=== PATIENT | female | born 1955 | race Caucasian/White ===

== ENCOUNTER 2017-05-31 23:16 | Inpatient (IN) | payer MEDICARE ==
[2017-05-31 23:57] LABS: HEMATOCRIT 51.6 % (36.0-48.0); LYMPHOCYTES 31.9 % (15-50); MCH 28.4 pg (26.0-34.0); MCHC 34.9 g/dL (31.0-37.0); MCV 81.4 fL (80.0-100.0); MEAN PLATELET VOLUME 9.3 fL (7.4-10.4); NEUTROPHILS 61.4 % (40-80); PLATELET COUNT 281 10x3/uL (130-400); RBC 6.34 10x6/uL (4.00-5.40); RDW 14.2 % (11.5-14.5); WBC 10.3 10x3/uL (4.8-10.8)
[2017-06-01 00:21] LABS: ALBUMIN 3.6 g/dL (3.4-5.0); BILIRUBIN - TOTAL 0.6 mg/dL (0.2-1.3); CALCIUM 9.3 mg/dL (8.5-10.1); CARBON DIOXIDE 25.7 mmol/L (21.0-32.0); CREATININE - SERUM 1.3 mg/dL (0.6-1.3); PROTEIN - SERUM 7.4 g/dL (6.4-8.2)
[2017-06-01 00:23] LABS: POTASSIUM - SERUM 2.7 mmol/L (3.5-5.1); TROPONIN-I 0.153 ng/mL (0.000-0.060)
[2017-06-01 03:32] VITALS: BP 128/63; BMI 36.1
--- NOTE | 2017-06-01 03:38 | NUR ---
ARRIVED TO FLOOR VIA WHEELCHAIR, ACCOMPANIED BY HOSPITAL STAFF. ORIENTED TO UNIT AND PLACED ON TELEMETRY 67 SR. IV FLUIDS INITIATED TO LEFT AC NS WITH 40KCL @ 100. CALL LIGHT IN REACH. WILL CONTINUE TO MONITOR. SEE NURSE ASSESSMENT.
[2017-06-01] MEDS ORDERED: CATAPRES0.1 MG PO (03:44)
[2017-06-01] MEDS ORDERED: LISINOPRIL-HCTZ1 T13 PO (03:44)
[2017-06-01] MEDS ORDERED: NORVASC5 MG PO (03:45)
[2017-06-01] MEDS ORDERED: XIGDUO XR 10 M1 EAC1 PO (03:45)
[2017-06-01] MEDS ORDERED: METOPROLOL TART50 MG PO (03:45)
[2017-06-01] MEDS ORDERED: TRULICITY0.75 MG/0. SC (03:46)
[2017-06-01 06:46] LABS: CKMB 26.5 U/L (0.0-3.6); CREATINE KINASE 193 UL (21-215)
[2017-06-01 06:53] LABS: TROPONIN-I 0.137 ng/mL (0.000-0.060)
[2017-06-01 07:38] LABS: BASOPHILS 0.4 % (0-2); EOSINOPHILS 0.4 % (0-7); HEMATOCRIT 49.4 % (36.0-48.0); HEMOGLOBIN 17.7 g/dL (12-16); IMMATURE GRANULOCYTES 0.3 % (0-5); LYMPHOCYTES 31.9 % (15-50); MCH 29.5 pg (26.0-34.0); MCHC 35.8 g/dL (31.0-37.0); MCV 82.5 fL (80.0-100.0); MEAN PLATELET VOLUME 10.3 fL (7.4-10.4); MONOCYTES 8.2 % (2-11); NEUTROPHILS 58.8 % (40-80); PLATELET COUNT 243 10x3/uL (130-400); RBC 5.99 10x6/uL (4.00-5.40); RDW 13.3 % (11.5-14.5); WBC 11.3 10x3/uL (4.8-10.8)
[2017-06-01 07:48] LABS: ANION GAP 15.9 mmol/L (8-16); CALCIUM 9.3 mg/dL (8.5-10.1); CARBON DIOXIDE 25.9 mmol/L (21.0-32.0); CREATININE - SERUM 1.3 mg/dL (0.6-1.3)
[2017-06-01 07:49] LABS: POTASSIUM - SERUM 3.8 mmol/L (3.5-5.1)
[2017-06-01 08:07] VITALS: BP 127/68
[2017-06-01 11:46] LABS: APPEARANCE HAZY (CLEAR); BILIRUBIN NEGATIVE (NEGATIVE); COLOR YELLOW (YELLOW); GLUCOSE 1000 mg/dL (NEGATIVE); KETONE SMALL mg/dL (NEGATIVE); NITRITE NEGATIVE (NEGATIVE); PROTEIN NEGATIVE (NEGATIVE); UROBILINOGEN NORMAL (NORMAL)
[2017-06-01 11:53] VITALS: BP 111/51
--- NOTE | 2017-06-01 12:33 | NUR ---
PT REFUSED INSULIN WHICH WOULD BE 2 UNITS PER SS. FSBS 194. PT STATES "I DONT LIKE INSULIN AND NEVER WANT TO TAKE IT" WILL DISCUSS WITH PRIMARY ABOUT STRATING HOME MEDS. PT DENIES ANY PAIN OR CURRENT NEEDS AT THIS TIME. CL IN REACH. WILL CPOC.
[2017-06-01 12:52] LABS: CKMB 24.9 U/L (0.0-3.6); CREATINE KINASE 185 UL (21-215)
[2017-06-01 12:55] LABS: TROPONIN-I 0.131 ng/mL (0.000-0.060)
[2017-06-01 14:04] VITALS: BMI 36.0
--- NOTE | 2017-06-01 14:50 | NUR ---
PT WAITING QUIETLY AND RESTING WITH FRIEND AT BEDSIDE. INQUIRING ABOUT GETTING NEW DIABETIC MED AND WHEN PRIMARY DOCTOR WILL BE ROUNDING, IS ON FLOOR AND I LET THEM KNOW HE SHOULD BE AROUND SHORTLY. CL IN REACH. WILL CPOC.
--- NOTE | 2017-06-01 16:30 | NUR ---
STOOL SPECIMEN NEEDED, EXPLAINED COLLECTION PROCESS WITH PT AND PUT COLLECTION HAT IN BR. PT VERBALIZED UNDERSTANDING AND STATES SHE WILL CALL WHEN ABLE TO HAVE BM. NO CURRENT NEEDS. WILL CPOC.
--- NOTE | 2017-06-01 16:53 | NUR ---
FSBS 229 PT REC'D 4 UNITS PER SS INSULIN. PT C/O THROBBING BOLIVAR AND WAS PROVIDED WITH PRN MORPHINE. ZOFRAN DRIP INITIATED ORDERED @4.7MLS/HR. PT HAS FAMILY VISITING AND DENIES ANY FURTHER NEEDS AT THIS TIME. CL IN REACH, BED IN LOWEST, SIDE RAILS X2. WILL CPOC.
[2017-06-01 19:16] LABS: CKMB 19.4 U/L (0.0-3.6); CREATINE KINASE 156 UL (21-215)
[2017-06-01 19:38] LABS: TROPONIN-I 0.133 ng/mL (0.000-0.060)
[2017-06-01 20:00] VITALS: BP 133/61
--- NOTE | 2017-06-01 20:13 | NUR ---
RESUMED CARE OF PT, LYING IN BED RESPIRATIONS EVEN AND UNLABORED ON ROOM AIR. 63 SR ON TELEMETRY. LEFT AC INFUSING NS WITH 40K @ 125 AND ZOFRAN @ 4.7. STATES HER FEET ARE A DIFFERENT COLOR AND FEEL FUNNY. SKIN COLOR LOOKS TO BE THE SAME THE REST OF HER BODY, WILL CONTINUE TO MONITOR. CALL LIGHT IN REACH. SEE NURSE ASSESSMENT.
[2017-06-02] VITALS: BP 117/61
--- NOTE | 2017-06-02 02:30 | NUR ---
LYING IN BED WITH EYES CLOSED, CALL LIGHT IN REACH. WILL CONTINUE TO MONITOR.
[2017-06-02 04:00] VITALS: BP 157/77
[2017-06-02 06:40] LABS: BASOPHILS 0.3 % (0-2); EOSINOPHILS 0.7 % (0-7); HEMATOCRIT 47.5 % (36.0-48.0); IMMATURE GRANULOCYTES 0.1 % (0-5); LYMPHOCYTES 33.3 % (15-50); MCH 28.8 pg (26.0-34.0); MCHC 33.7 g/dL (31.0-37.0); MEAN PLATELET VOLUME 9.9 fL (7.4-10.4); MONOCYTES 8.4 % (2-11); NEUTROPHILS 57.2 % (40-80); PLATELET COUNT 195 10x3/uL (130-400); RBC 5.55 10x6/uL (4.00-5.40); RDW 13.6 % (11.5-14.5)
[2017-06-02 06:42] LABS: MCV 85.6 fL (80.0-100.0); WBC 7.5 10x3/uL (4.8-10.8)
--- NOTE | 2017-06-02 06:42 | NUR ---
NO CHANGES FROM PREVIOUS ASSESSMENT, CALL LIGHT IN REACH. WILL CONTINUE TO MONITOR.
[2017-06-02 06:59] LABS: ANION GAP 9.4 mmol/L (8-16); CALCIUM 8.8 mg/dL (8.5-10.1); CARBON DIOXIDE 28.9 mmol/L (21.0-32.0); CREATININE - SERUM 1.2 mg/dL (0.6-1.3); POTASSIUM - SERUM 4.3 mmol/L (3.5-5.1)
--- NOTE | 2017-06-02 07:30 | NUR ---
ASSESSMENT COMPLETED. TELEMERTY SHOWS SR 80. LEFT AC SLIV WITH NS WITH 40 K AT 125 AND ZOFRAN AT 4.7. RIGHT GREAT TOE TENDER. SR UP WITH CALL LIGHT IN REACH . WILL MONITOR
[2017-06-02 08:22] VITALS: BP 152/77
--- NOTE | 2017-06-02 12:18 | NUR ---
RESTS IN BED EATING LUNCH. ANNE NEEDS AT THIS TIME. WILL MONITOR.
[2017-06-02 12:39] VITALS: BP 165/64
--- NOTE | 2017-06-02 14:09 | NUR ---
Nutrition Consult/Follow Up: Pt reported that she did not feel well after lunch. RD observed pt folded over and holding stomach. Informed nursing. DM diet info left with pt. Will attempt at a later time if possible. Pt is eating 50% meal avg on a regular diet. No BM since admit. Labs reviewed- Glucose elevated. Meds noted. Will change diet to diabetic to aid in glucose control. RD following.
--- NOTE | 2017-06-02 16:56 | EC ---
PATIENT:ARLEY ARNETT DATE OF SERVICE: 06/01/17 SEX: F MEDICAL RECORD: [id number] DATE OF : 57 LOCATION:D. D.212 AGE OF PATIENT: 61 ADMISSION DATE: 06/01/17 REFERRING PHYSICIAN: INTERPRETING PHYSICIAN: SHILPA CABALLERO MD ECHOCARDIOGRAM REPORT ECHO CHARGES 4 ECHO COMPLETE CLINICAL DIAGNOSIS: HTN HX OF STENTS IN LEGS ECHOCARDIOGRAPHIC MEASUREMENTS (adult normal given) AC root (d.<3.7cm) 3.0 cm LV Septum d (<1.2 cm> 2.4 cm Valve Excursion 2.2 cm LV Septum (systole) 2.6 cm Left Atria (s.<4.0cm> 4.4 cm LVPW d(<1.2cm) 2.1 cm RV (d.<2.3cm) 2.8 cm LVPW (sytole) 2.5 cm LV diastole(<5.6CM) 2.8 cm MV E-F(>70mm/sec) cm LV systole 1.3 cm LVOT Diameter 1.6 cm MV exc.(>10mm) 1.0 cm Est.ejection fraction (50-75%) % Pericardial Effusion N DOPPLER: LVIT cm/sec A 111 cm/sec E 73.0 cm/sec LA cm/sec RVSP 19 mmHg LVOT 193 cm/sec AOP1/2T m/s Asc. Ao 190 cm/sec RVOT 115 cm/sec RA cm/sec PA 132 cm/sec AV Gradient Peak 14.39mmHg AV Mean 6.52 mmHg AV Area 2.6 cm MV Gradient Peak 7.08 mmHg MV Mean 2.38 mmHg MV Area cm COMMENTS: Logistics Center Manager: Jamie MICHAUD Farm General Manager: 2 Dr. Mariscal TAPE# PACS DATE OF SERVICE: 06/01/2017 FINDINGS: 1. Left ventricular chamber size is within normal limits. Left ventricular systolic function is normal. Overall ejection fraction estimated at 60%. 2. Left atrium, right atrium, and right ventricular chamber sizes are within normal limits. 3. Valvular structures have normal structure and motion. 4. Doppler interrogation reveals only mild tricuspid regurgitation, no other valvular insufficiency or stenosis and pulmonary systolic pressure is normal ECHOCARDIOGRAM REPORT [id number] ARLEY ARNETT estimated at 19 mmHg. 5. No evidence of pericardial effusion or left ventricular thrombus. TRANSINT:[id number] Voice Confirmation ID: [id number] DOCUMENT ID: [id number] SHILPA CABALLERO MD at 1656 CC: [id number] DICTATION DATE: 06/01/17 1328 COOK COLD MEAT: 06/01/17 1339 ADM IN [facility] [address] [place] [address]
[2017-06-02 20:00] VITALS: BP 148/72
--- NOTE | 2017-06-02 21:21 | NUR ---
PT WAS AMBULATING TO BATHROOM WHEN SHE PULLED HER IV OUT. JALEN WITH RT WAS ABLE TO ASSIST PT, I WAS WITH ANOTHER PT AT THAT TIME. PT IS ASKING FOR PAIN MEDICATION. WILL RESITE IV AND CONTINUE WITH PT CARE.
[2017-06-03] VITALS: BP 207/94
[2017-06-03 04:00] VITALS: BP 118/87
--- NOTE | 2017-06-03 05:38 | NUR ---
PT CONTINUES TO HAVE A HEADACHE EVEN WITH MORPHINE PRN. PT ALSO C/O A SORE ON HER BUTTOCK. BUTT PASTE GIVEN TO PT FOR PROTECTIVE COVERING TO APPLY PRN, HOWEVER, PT REQUESTED A MEPILEX DRESSING INSTEAD. PT IS CURRENTLY RESTING COMFORTABLY. PT ALSO STATES SHE DOES NOT WANT INSULIN UNLESS HER FSBS IS 195 OR >. CONTINUE TO MONITOR CLOSELY.
[2017-06-03 06:32] LABS: BASOPHILS 0.4 % (0-2); EOSINOPHILS 0.8 % (0-7); HEMATOCRIT 42.3 % (36.0-48.0); HEMOGLOBIN 14.4 g/dL (12-16); IMMATURE GRANULOCYTES 0.1 % (0-5); LYMPHOCYTES 35.8 % (15-50); MCV 85.3 fL (80.0-100.0); MEAN PLATELET VOLUME 10.1 fL (7.4-10.4); MONOCYTES 7.2 % (2-11); NEUTROPHILS 55.7 % (40-80); PLATELET COUNT 195 10x3/uL (130-400); RBC 4.96 10x6/uL (4.00-5.40); RDW 13.6 % (11.5-14.5); WBC 7.7 10x3/uL (4.8-10.8)
[2017-06-03 06:51] LABS: ALBUMIN 2.9 g/dL (3.4-5.0); BILIRUBIN - TOTAL 0.4 mg/dL (0.2-1.3); CALCIUM 8.3 mg/dL (8.5-10.1); CARBON DIOXIDE 26.2 mmol/L (21.0-32.0); CREATININE - SERUM 0.9 mg/dL (0.6-1.3); POTASSIUM - SERUM 4.2 mmol/L (3.5-5.1); PROTEIN - SERUM 5.8 g/dL (6.4-8.2)
[2017-06-03 07:16] VITALS: BP 219/102
--- NOTE | 2017-06-03 08:39 | NUR ---
ASSESSMENT DONE. PATIENT RESTING IN BED. NO C/O PAIN OR DISCOMFORT.
--- NOTE | 2017-06-03 09:15 | NUR ---
RESTS IN BED WITHOUT NEEDS OR COMPLAINTS. CALL LIGHT IN REACH. WILL MONITOR.
[2017-06-03 11:04] VITALS: BP 228/134
[2017-06-03 15:11] VITALS: BP 170/76
--- NOTE | 2017-06-03 17:30 | NUR ---
PATIENT UP WALKING AROUND. NO C/O PAIN OR DISCOMFORT. NO CHANGES.
--- NOTE | 2017-06-03 22:15 | NUR ---
LEFT HAND IV STARTING TO SWELL AND PT C/O PAIN AT THE IV SITE. ANGIOCATH REMOVED WITH TIP INTACT. RESITED WITH 22 GA ANGIOCATH TO RIGHT FOREARM X 1 STICK. PT TOLERATED WELL. WILL CONT TO MONITOR.
[2017-06-04] VITALS: BP 198/103
--- NOTE | 2017-06-04 00:26 | NUR ---
Pt given Clonidine 0.1 mg po for elevated B/P 197/103. Will monitor.
[2017-06-04 04:00] VITALS: BP 160/79
[2017-06-04 05:05] LABS: BASOPHILS 0.2 % (0-2); EOSINOPHILS 1.1 % (0-7); HEMATOCRIT 42.3 % (36.0-48.0); HEMOGLOBIN 14.1 g/dL (12-16); IMMATURE GRANULOCYTES 0.2 % (0-5); LYMPHOCYTES 30.5 % (15-50); MCH 28.7 pg (26.0-34.0); MCHC 33.3 g/dL (31.0-37.0); MCV 86.2 fL (80.0-100.0); MONOCYTES 6.8 % (2-11); NEUTROPHILS 61.2 % (40-80); PLATELET COUNT 182 10x3/uL (130-400); RBC 4.91 10x6/uL (4.00-5.40); RDW 13.7 % (11.5-14.5); WBC 8.4 10x3/uL (4.8-10.8)
[2017-06-04 05:20] LABS: ALBUMIN 2.8 g/dL (3.4-5.0); ANION GAP 11.6 mmol/L (8-16); BILIRUBIN - TOTAL 0.35 mg/dL (0.2-1.3); CALCIUM 8.7 mg/dL (8.5-10.1); CARBON DIOXIDE 25.1 mmol/L (21.0-32.0); POTASSIUM - SERUM 4.7 mmol/L (3.5-5.1); PROTEIN - SERUM 5.9 g/dL (6.4-8.2)
[2017-06-04 08:00] VITALS: BP 209/86
--- NOTE | 2017-06-04 09:29 | NUR ---
STOOL SPECIMEN COLLECTED AND TAKEN TO LAB. WILL MONITOR.
--- NOTE | 2017-06-04 09:30 | NUR ---
TELEMETRY SR. AMBULATES HALLWAY ADLIB. GAIT STEADY.
[2017-06-04 12:00] VITALS: BP 198/82
--- NOTE | 2017-06-04 15:02 | NUR ---
ES TYLENOL GIVEN FOR C/O BOLIVAR. AMBULATES HALLWAY. WILL CONT. PLAN OF CARE.
[2017-06-04 16:00] VITALS: BP 134/53
--- NOTE | 2017-06-04 19:57 | NUR ---
RESUMED CARE OF PT, LYING IN BED RESPIRATIONS EVEN AND UNLABORED ON ROOM AIR. RIGHT FOREARM INFUSING NS WITH 40K @ 30. 56 SB ON TELEMETRY. CALL LIGHT IN REACH. WILL CONTINUE TO MONTIOR. SEE NURSE ASSESSMENT. PLAN OF CARE DISCUSSED.
[2017-06-04 20:00] VITALS: BP 191/78
[2017-06-05] VITALS: BP 177/69
--- NOTE | 2017-06-05 01:25 | NUR ---
LYING IN BED WITH EYES CLOSED, CALL LIGHT IN REACH. WILL CONTINUE TO MONITOR.
[2017-06-05 04:00] VITALS: BP 162/59
[2017-06-05 05:33] LABS: BASOPHILS 0.4 % (0-2); EOSINOPHILS 1.4 % (0-7); HEMATOCRIT 43.1 % (36.0-48.0); HEMOGLOBIN 14.6 g/dL (12-16); IMMATURE GRANULOCYTES 0.3 % (0-5); LYMPHOCYTES 28.4 % (15-50); MCH 28.9 pg (26.0-34.0); MCHC 33.9 g/dL (31.0-37.0); MCV 85.2 fL (80.0-100.0); MONOCYTES 9.1 % (2-11); NEUTROPHILS 60.4 % (40-80); PLATELET COUNT 171 10x3/uL (130-400); RBC 5.06 10x6/uL (4.00-5.40); RDW 13.5 % (11.5-14.5); WBC 7.7 10x3/uL (4.8-10.8)
[2017-06-05 05:51] LABS: ALBUMIN 2.8 g/dL (3.4-5.0); ANION GAP 12.7 mmol/L (8-16); BILIRUBIN - TOTAL 0.35 mg/dL (0.2-1.3); CALCIUM 8.7 mg/dL (8.5-10.1); CARBON DIOXIDE 27.5 mmol/L (21.0-32.0); CREATININE - SERUM 0.9 mg/dL (0.6-1.3); POTASSIUM - SERUM 4.2 mmol/L (3.5-5.1); PROTEIN - SERUM 5.8 g/dL (6.4-8.2)
[2017-06-05 07:22] LABS: MAGNESIUM - SERUM 1.7 mg/dL (1.8-2.4); PHOSPHOROUS 4.2 mg/dL (2.5-4.9)
--- NOTE | 2017-06-05 07:38 | NUR ---
PT LAYING TO LEFT SIDE SLEEPING, EASY TO ARROUSE. DENIES NEEDS AT THIS TIME WILL CONT TO MONITOR
[2017-06-05 08:34] VITALS: BP 182/71
[2017-06-05 12:23] VITALS: BP 194/78
--- NOTE | 2017-06-05 16:31 | NUR ---
DC PIV WITH CATHT IP INTACT DC TELE AND RETURNED TO WINDSURFING INSTRUCTOR
[2017-06-05 16:43] VITALS: BP 160/77
--- NOTE | 2017-06-05 16:58 | NUR ---
PT SITTING UP TO CHAIR DENIES ANY NEEDS WAITING FOR DINNER TO BE DELIVERED.
[2017-06-05 20:30] VITALS: BP 157/67
--- NOTE | 2017-06-05 22:43 | NUR ---
BEDTIME MEDS GIVEN. PT ALERT/ORIENTED. NO DISCOMFORT VOICED. FSBS 195 AND PT DECLINED THE SLIDING SCALE INSULIN.
[2017-06-06 01:44] VITALS: BP 165/65
[2017-06-06 04:40] VITALS: BP 166/67
[2017-06-06 05:57] LABS: BASOPHILS 0.4 % (0-2); EOSINOPHILS 1.2 % (0-7); HEMATOCRIT 45.8 % (36.0-48.0); HEMOGLOBIN 15.6 g/dL (12-16); IMMATURE GRANULOCYTES 0.1 % (0-5); LYMPHOCYTES 27.3 % (15-50); MCHC 34.1 g/dL (31.0-37.0); MCV 85.1 fL (80.0-100.0); MEAN PLATELET VOLUME 10.4 fL (7.4-10.4); MONOCYTES 8.4 % (2-11); NEUTROPHILS 62.6 % (40-80); PLATELET COUNT 192 10x3/uL (130-400); RBC 5.38 10x6/uL (4.00-5.40); RDW 13.6 % (11.5-14.5)
[2017-06-06 06:21] LABS: ALBUMIN 2.8 g/dL (3.4-5.0); ANION GAP 14.3 mmol/L (8-16); BILIRUBIN - TOTAL 0.32 mg/dL (0.2-1.3); CALCIUM 9.6 mg/dL (8.5-10.1); CARBON DIOXIDE 28.5 mmol/L (21.0-32.0); POTASSIUM - SERUM 3.8 mmol/L (3.5-5.1); PROTEIN - SERUM 6.6 g/dL (6.4-8.2)
[2017-06-06 07:13] VITALS: BP 210/74
--- NOTE | 2017-06-06 07:44 | NUR ---
BP IN L ARM 228/107. BP IN R ARM IS 210/75. CATAPRES 0.1 MG GIVEN PO ORDERED. PT UP AMBULATING.
--- NOTE | 2017-06-06 10:53 | NUR ---
Nutrition follow-up: RDN visited with pt re: consistent CHO diet for diabetes. All pts questions answered. Pt not very happy about diet recommendations made by this RDN. Pt states she loves bread and will not stop eating it. Reviewed diet with emphasis on consistent intake of CHO per meal. Pt seems to have good understanding of information provided. RDN following.
[2017-06-06 12:57] VITALS: BP 139/47
[2017-06-06] MEDS ORDERED: NORVASC10 MG PO (16:16)
[2017-06-06] MEDS ORDERED: LISINOPRIL-HCTZ1 T11 PO (16:16)
--- NOTE | 2017-06-06 16:18 | NUR ---
HAS BEEN AMBULATING NO APPARENT DISTRESS.
--- NOTE | 2017-06-06 17:20 | NUR ---
DISCHARGE INSTRUCTIONS GIVEN TO PATIENT. ALSO COPIES GIVEN. PT UNDERSTANDS. TO CAR VIA WC.
[2017-06-11 03:06] LABS: OVA + PARASITE EXAM Final report (())
== END 2017-06-06 17:21 | disposition home or self-care (01) | DRG 641 ==
LOC: D.ER 23:16 → OBSVTIME 06-01 00:54 → D.M2 06-01 00:54
PROVIDERS: Emergency Medicine; ADMIT Family Medicine
DX: E86.0 Dehydration (principal); F17.203 Nicotine dependence unspecified, with withdrawal; E11.65 Type 2 diabetes mellitus with hyperglycemia; E87.6 Hypokalemia; F12.10 Cannabis abuse, uncomplicated; I10 Essential (primary) hypertension; R79.89 Other specified abnormal findings of blood chemistry; R19.7 Diarrhea, unspecified